=== PATIENT | female | born 1960 | race Two or more races ===

== ENCOUNTER 2024-06-24 17:00 | Emergency (ER) | payer MEDICAID, OTHER ==
[~2024-06-24] VITALS: Ht 165.1 cm; Wt 54.0 kg
[2024-06-24] MEDS: ALBUTEROL SULF 2.5 MG/0.5ML(0.5%) NEB SOLN NEB ONE ×3 (17:35→23:05)
[2024-06-24] MEDS: IPRATROPIUM BROM 0.5 MG/2.5ML INH SOL NEB ONE ×3 (17:35→22:55)
[2024-06-24 17:45] LABS: Eosinophils # (auto) 0 10 ^3/uL (0-0.8); Eosinophils % (auto) 0.1 % (0.0-7.0); Lymphocytes # (auto) 1.2 10 ^3/uL (0.4-5.4); Neutrophils # (auto) 5.9 10 ^3/uL (1.6-8.6); White Blood Cell 7.7 10^3/uL (4.4-10.8)
[2024-06-24 17:47] LABS: Basophils # (auto) 0.1 10 ^3/uL (0-0.2); Basophils % (auto) 0.7 % (0.0-2.0); Hematocrit 46.1 % (36.0-46.0); Hemoglobin 15.5 g/dL (12.2-16.2); Lymphocytes % (auto) 15.9 % (10.0-50.0); Mean Corpuscular Hemoglobin 31.9 pg (28.0-32.0); Mean Corpuscular Hgb Conc. 33.6 g/dL (32.0-36.0); Mean Corpuscular Volume 95.1 fL (80.0-100.0); Monocytes # (auto) 0.5 10 ^3/uL (0-1.3); Monocytes % (auto) 6.6 % (0.0-12.0); Neutrophils % (auto) 76.7 % (37.0-80.0); Red Blood Cells 4.85 10^6/uL (4.0-5.20); Red Cell Distribution Width 13.7 % (11.8-14.3)
[2024-06-24 18:09] LABS: Alanine Aminotransferase 17 U/L (7-40); Alkaline Phosphatase 84 U/L (46-116); Anion Gap 5 (5-15); Aspartate Aminotransferase 21 U/L (13-40); BUN/Creatinine Ratio 16.7 (10.0-20.0); Blood Urea Nitrogen 10 mg/dL (9-23); Calcium 10.1 mg/dL (8.7-10.4); Carbon Dioxide 28 mmol/L (20-31); Chloride 105 mmol/L (98-107); Glucose 105 mg/dL (74-106); Magnesium 1.8 mg/dL (1.6-2.6); Potassium 3.7 mmol/L (3.5-5.1); Sodium 138 mmol/L (136-145)
[2024-06-24 18:10] LABS: Albumin 4.1 g/dL (3.2-4.8); Total Protein 6.6 g/dL (5.7-8.2)
[2024-06-24 18:13] LABS: Bilirubin, Total 0.2 mg/dL (0.2-1.0)
[2024-06-24] MEDS: methylPREDNISolone SOD SUCC 125 MG/2 ML VL IV ONE (18:18)
--- NOTE | 2024-06-24 18:36 | ED.PDOC ---
SOB-HPI HPI Comments HPI: Poor Historian. 63-year-old female brought in by ambulance from [facility] for evaluation of hypoxemia O2 sat of 89% at room air. She was placed at 2 L nasal cannula and brought her up to about 91%. Patient went the [facility] to be evaluated for flu-like symptoms in the last two days of cough fever subjective headache sore throat. Past Medcial History: COPD, tobacco abuse Past Surgical History: Appendectomy, tonsillectomy, two abortions. REVIEW OF SYSTEMS: CONSTITUTIONAL: Denies acute: diaphoresis, chills, HEAD: Denies acute: headache, photophobia Eyes: Denies acute: Double vision, vision loss, eye pain, eye discharge. EARS: Denies acute: tinnitus, hearing loss, ear discharge, ear pain, THROAT: Denies acute: sore throat, swelling, difficulty swallowing , pain with swallowing, change in voice. NECK: Denies acute: neck pain, neck swelling, stiff neck. HEART: Denies acute : chest pain, palpitations, LUNGS: Denies acute: wheezing, hemoptysis ABDOMEN: Denies acute: abdominal pain, Nausea, Vomiting, diarrhea, melena , hematemesis, hematochezia SKIN: Denies acute: rash, redness, lesions, itchiness. EXTREMITIES: Denies acute: calf pain, numbness, tingling, weakness, denies pain in extremity. Denies acute: Low back pain. Neuro: Denies acute: focal neurological deficit, motor or sensory focal neurological deficit, tremors, seizure like activity, confusion, dizziness, change in mental status, loss of bowel or bladder function, cauda equina like symptoms. : Denies acute: dysuria, hematuria, flank pain, increase in urinary frequency. PSYCH: Denies acute: hallucination, suicidal ideation, homicidal ideation. FEMALE: Denies acute: abnormal vaginal bleeding, foul odor, unusual discharge. PHYSICAL EXAM: General: no acute distress, awake and alert. Head: normocephalic, atraumatic. Neck: supple, trachea is midline, no swelling. Throat: Normal phonation. Eyes:, no erythema, no purulent discharge, no proptosis, no icterus. Heart: regular rate, regular rhythm, no significant murmur appreciated. Lungs: no apparent respiratory distress, Able to speak in full sentences. No wheezing, no rhonchi, no crackles. No stridors Clear to auscultation bilaterally. Abdomen: non tender to palpation, non distended, soft, no guarding, no rebound, + bowel sounds. Neuro: Awake, Alert, oriented to name, self, situation, follows commands GCS=15. Speech is normal. Skin: no petechia, no purpura, no cyanosis, non-pale, not jaundice. Lower extremities: --no - Pitting edema no deformity, no focal swelling, no calf TTP. Makes eye contact. moves all four extremities. Face: no apparent facial droop. Ambulating in the ED independently. Chief Complaint: Flu like Time Seen by MD: 17:01 Primary Care Provider: NONE Reviewed notes: Nurses Notes, Allergies Information Source: Patient Mode of Arrival: EMS Past Medical History Surgical History: Denies all surgeries MACHINIST BENCH History: No Pertinent MACHINIST BENCH History Social History Smoker: Non-Smoker Alcohol: Denies ETOH Use Drugs: Denies Drug Use X-Ray, Labs, Meds, VS Vital Signs Date Time Temp Pulse Resp B/P (MAP) Pulse Ox O2 Delivery O2 Flow Rate FiO2 06/24/24 23:30 77 15 121/62 (81) 94 06/24/24 22:57 18 94 Nasal Cannula* 4 36 06/24/24 22:22 98.0 77 18 147/76 (99) 93 98.0 06/24/24 18:04 98.0 78 18 141/62 (88) 93 98.0 06/24/24 18:04 78 18 93 Room Air 06/24/24 17:38 18 89 Room Air* 0 21 06/24/24 17:23 98.3 72 22 116/71 (86) 92 Lab Test 06/24/24 20:14 06/24/24 18:29 06/24/24 17:52 06/24/24 17:31 Range/Units Troponin I High Sensitivity 6 5 6 </=34 ng/L Influenza Type A Antigen Negative Negative Influenza Type B Antigen Negative Negative SARS-CoV-2 Antigen (Rapid) Negative NEGATIVE White Blood Count 7.7 4.4-10.8 10^3/uL Red Blood Count 4.85 4.0-5.20 10^6/uL Hemoglobin 15.5 12.2-16.2 g/dL Hematocrit 46.1 H 36.0-46.0 % Mean Corpuscular Volume 95.1 80.0-100.0 fL Mean Corpuscular Hemoglobin 31.9 28.0-32.0 pg Mean Corpuscular Hemoglobin Concent 33.6 32.0-36.0 g/dL Red Cell Distribution Width 13.7 11.8-14.3 % Platelet Count 57 L 140-450 10^3/uL Mean Platelet Volume 11.7 H 6.9-10.8 fL Neutrophils (%) (Auto) 76.7 37.0-80.0 % Lymphocytes (%) (Auto) 15.9 10.0-50.0 % Monocytes (%) (Auto) 6.6 0.0-12.0 % Eosinophils (%) (Auto) 0.1 0.0-7.0 % Basophils (%) (Auto) 0.7 0.0-2.0 % Neutrophils # (Auto) 5.9 1.6-8.6 10 ^3/uL Lymphocytes # (Auto) 1.2 0.4-5.4 10 ^3/uL Monocytes # (Auto) 0.5 0-1.3 10 ^3/uL Eosinophils # (Auto) 0 0-0.8 10 ^3/uL Basophils # (Auto) 0.1 0-0.2 10 ^3/uL Nucleated Red Blood Cells 0.0 % Platelet Estimate Decreased Large Platelets Few Sodium Level 138 136-145 mmol/L Potassium Level 3.7 3.5-5.1 mmol/L Chloride Level 105 98-107 mmol/L Carbon Dioxide Level 28 20-31 mmol/L Anion Gap 5 5-15 Blood Urea Nitrogen 10 9-23 mg/dL Creatinine 0.60 0.550-1.02 mg/dL Glomerular Filtration Rate Calc 101 >90 mL/min BUN/Creatinine Ratio 16.7 10.0-20.0 Serum Glucose 105 74-106 mg/dL Lactic Acid Level 1.5 0.4-2.0 mmol/L Calcium Level 10.1 8.7-10.4 mg/dL Magnesium Level 1.8 1.6-2.6 mg/dL Total Bilirubin 0.2 0.2-1.0 mg/dL Aspartate Amino Transferase (AST) 21 13-40 U/L Alanine Aminotransferase (ALT) 17 7-40 U/L Alkaline Phosphatase 84 46-116 U/L B-Type Natriuretic Peptide 36.06 0-100 pg/mL Total Protein 6.6 5.7-8.2 g/dL Albumin 4.1 3.2-4.8 g/dL Test 06/24/24 17:15 Range/Units Urine Color Light-yellow Yellow Urine Clarity Clear Clear Urine pH 6.0 5.0-9.0 Urine Specific [place] 1.018 1.001-1.035 Urine Protein Negative Negative Urine Ketones Negative Negative Urine Blood Negative Negative /uL Urine Nitrite Negative Negative Urine Bilirubin Negative Negative Urine Urobilinogen Normal Negative mg/dL Urine Leukocyte Esterase 1+ Negative /uL Urine RBC 1 0 - 4 /hpf Urine WBC 1 0 - 5 /hpf Urine Squamous Epithelial Cells Few <5 /hpf Urine Bacteria None seen None Seen /hpf Urine Mucus Few None Seen Urine Glucose Normal Normal mg/dL Urine Opiates Screen Neg NEGATIVE Urine Fentanyl Screen Neg NEGATIVE Urine Barbiturates Screen Neg NEGATIVE Urine Phencyclidine Screen Neg NEGATIVE Urine Amphetamines Screen Neg NEGATIVE Urine Benzodiazepines Screen Neg NEGATIVE Urine Cocaine Screen Neg NEGATIVE Urine Cannabinoids Screen Neg NEGATIVE Current Medications Medications (Trade) Dose Ordered Sig/Torres Route Start Time Stop Time Status Last Admin Albuterol (Ventolin Medneb) 2.5 mg ONCE ONCE NEB 06/24/24 17:15 06/24/24 17:16 DC 06/24/24 17:35 Ipratropium [place] (Atrovent Medneb) 1 mg ONCE ONCE NEB 06/24/24 17:15 06/24/24 17:16 DC 06/24/24 17:35 Methylprednisolone Sodium Succinate (Solu Medrol) 125 mg ONCE ONCE IV 06/24/24 17:15 06/24/24 17:16 DC 06/24/24 18:18 Ceftriaxone Sodium 50 ml @ 100 mls/hr ONCE ONCE IV 06/24/24 22:00 06/24/24 22:29 DC 06/24/24 22:33 Azithromycin (Zithromax Tablet) 500 mg ONCE ONCE PO 06/24/24 22:30 06/24/24 22:33 DC 06/24/24 22:37 Albuterol (Ventolin Medneb) 2.5 mg ONCE ONCE NEB 06/24/24 22:30 06/24/24 22:31 DC 06/24/24 23:05 Ipratropium [place] (Atrovent Medneb) 0.5 mg ONCE ONCE NEB 06/24/24 22:30 06/24/24 22:31 DC 06/24/24 23:06 CHEST RADIOGRAPH Indication: cough/sob/sore throat flu like Technique: Single frontal view of the chest was obtained Comparison: None FINDINGS: Lines and Tubes: None Lungs: Bibasilar areas of atelectasis or infiltrate. No prior studies for comparison Pleura: No effusion. No pneumothorax. Cardiomediastinal contours: Unremarkable Bones: No acute osseous abnormality. IMPRESSION: 1. Bibasilar areas of atelectasis or developing infiltrates. No prior studies for comparison. Time of 1ST Reevaluation: 22:21 (The case was discussed with the [facility] admitting team (HPI, physical exam, labs and diagnostic tests that were available at the time of disposition, ED course, treatment plan) on the phone. They agreed to transfer the patient to their facility for further evaluation and treatment by ALS. Authorization number is [id number] Sanchez) Reevaluation 1ST: Improved Patient Education/Counseling: Diagnosis, Treatment Family Education/Counseling: No Family Present Departure 1 Departure Time of Disposition: 21:54 Impression: Primary Impression: Hypoxemia Additional Impressions: Thrombocytopenia Bilateral pneumonia Admit to: Tele Condition: Guarded Discharged With: Self I personally scribed for PEDRO MARADIAGA DO ([email or web address]) on 06/25/24 at 00:56. Electronically submitted by Abhay Sanches ([facility]). PEDRO MARADIAGA DO Jun 24, 2024 18:36
[2024-06-24 18:43] LABS: Urine Bacteria None Seen /hpf (None Seen)
[2024-06-24 19:05] LABS: Opiate Scree,Urine Neg (NEGATIVE)
[2024-06-24 19:06] LABS: Amphetamine Screen, Urine Neg (NEGATIVE); Barbiturate Scree,Urine Neg (NEGATIVE); Benzodiazephine Screen, Urine Neg (NEGATIVE); Cocaine Screen, Urine Neg (NEGATIVE); Urine Blood Negative /uL (Negative); Urine Clarity Clear (Clear); Urine Color Light-Yellow (Yellow); Urine Mucus FEW (None Seen); Urine Protein, UAD Negative (Negative); Urine Specific Gravity 1.018 (1.001-1.035); Urine Squamous Epithelial Cell FEW /hpf (<5); Urine Urobilinogen Normal (Negative); Urine WBC 1 /hpf (0 - 5)
[2024-06-24 19:09] LABS: Large Platelets FEW; Platelet Estimate Decreased
[2024-06-24 19:10] LABS: Platelet Count (auto) 57 10^3/uL (140-450)
[2024-06-24 19:11] LABS: Cannabinoid Screen, Urine Neg (NEGATIVE); Phencyclidine Screen, Urine Neg (NEGATIVE)
[2024-06-24 20:26] LABS: COVID19 ANTIGEN SOFIA FIA NEGATIVE (NEGATIVE)
--- NOTE | 2024-06-24 20:41 | DVH ---
CHEST RADIOGRAPH Indication: cough/sob/sore throat flu like Technique: Single frontal view of the chest was obtained Comparison: None FINDINGS: Lines and Tubes: None Lungs: Bibasilar areas of atelectasis or infiltrate. No prior studies for comparison Pleura: No effusion. No pneumothorax. Cardiomediastinal contours: Unremarkable Bones: No acute osseous abnormality. IMPRESSION: 1. Bibasilar areas of atelectasis or developing infiltrates. No prior studies for comparison.
[2024-06-24 21:14] LABS: Rapid Influenza A Negative (Negative); Rapid Influenza B Negative (Negative)
[2024-06-24] MEDS: cefTRIAXone 1GM/50ML D5W 50 ML IV ONE (22:33)
[2024-06-24] MEDS: AZITHROMYCIN 250 MG TAB PO ONE (22:37)
[2024-06-24 23:30] VITALS: RESP 14; O2SAT 95
[2024-06-25 04:28] VITALS: BP 106/58; PULSE 68; RESP 14; TEMP 97.7; O2SAT 95
== END 2024-06-25 04:47 | disposition short-term general hospital (02) ==
LOC: EDBD 17:00 → ER 17:00
DX: R09.02 Hypoxemia (principal); D69.6 Thrombocytopenia, unspecified; J18.9 Pneumonia, unspecified organism; J44.9 Chronic obstructive pulmonary disease, unspecified; Z90.49 Acquired absence of other specified parts of digestive tract; Z90.89 Acquired absence of other organs; Z98.890 Other specified postprocedural states; Z79.899 Other long term (current) drug therapy; Z20.822 Contact with and (suspected) exposure to COVID-19
CPT/HCPCS: 36415; 71045; 80053; 80307; 81001; 83605; 83735; 83880; 84484; 85025; 87426; 87804; 94640; 96365; 96375; 99285; J0696; J2919